=== PATIENT | female | born 1965 | race Caucasian/White ===

== ENCOUNTER → 2018-02-07 | Outpatient (CLI) | payer SELFPAY ==
--- NOTE | 2018-02-12 13:40 | Diagnostic Imaging Report ---
Exam: Brain MRI without IV contrast History: Migraine, headache Comparison studies: Brain MRI 01/25/2013 Technique: Sagittal and axial T2 FS, axial DWI, axial T2*GRE, axial T1 FLAIR and axial coronal T2 FLAIR. Intravenous contrast: None Findings: Scalp: Normal in signal. No masses. Bone marrow: Normal in signal intensity. Brain sulci: Appropriate for age. Ventricles: Normal in size. No hydrocephalus. Extra axial spaces: No mass, no fluid collection. Parenchyma: No mass, hemorrhage or acute ischemia. A few scattered T2 FLAIR hyperintense foci in the supratentorial white matter are nonspecific and may reflect chronic microvascular ischemic changes. Suprasellar region: No abnormalities. Craniocervical junction: Patent foramen magnum. No Chiari malformation. Vessels: Normal flow-voids in the arteries and sinuses. IMPRESSION: 1. Mild nonspecific chronic microvascular ischemic changes. Similar findings have been reported in patients with migraine headache. 2. No changes from the previous brain MRI of 02/02/2013. Signed by: Dr. Timothy Rivera M.D. on 02/12/2018 1:37 PM
== END ==
LOC: MRI 07:35
PROVIDERS: ATTEND Psychiatry & Neurology Clinical Neurophysiology
DX: G43.019 Migraine without aura, intractable, without status migrainosus (principal)
CPT/HCPCS: 70551

== ENCOUNTER 2019-03-27 13:39 | Outpatient (RCR) | payer BC | END 2019-04-06 | LOC: PT 13:39 | PROVIDERS: ATTEND Neurological Surgery | DX: M47.22 Other spondylosis with radiculopathy, cervical region (principal) ==